=== PATIENT | female | born 1990 | race American Indian/Alaskan Native ===

== ENCOUNTER 2018-08-12 22:39 | Inpatient (IN) | payer MEDICAID ==
[2018-08-12] MEDS ORDERED: LACTATED RINGERS 1,000 ML IV ONE (23:08)
[2018-08-12] MEDS ORDERED: CELESTONE SOLUSPAN IM SCH (23:15)
[2018-08-12] MEDS ORDERED: MAGNESIUM SULFATE 40GM/1000ML 40 GM/1,000 ML BAG IV ONE (23:16)
[2018-08-12] MEDS ORDERED: MAGNESIUM SULFATE 4GM/100ML 4 GM/100 ML BAG IV ONE ×2 (23:17→23:20)
[2018-08-12] MEDS ORDERED: AMPICILLIN/NS 2 GM/100 ML 2 GM/100 ML BAG IV ONE ×2 (23:17→23:20)
[2018-08-12] MEDS ORDERED: CELESTONE SOLUSPAN IM ONE (23:18)
[2018-08-12] MEDS: AMPICILLIN/NS 2 GM/100 ML 2 GM/100 ML BAG IV SCH (23:30)
[2018-08-12] MEDS ORDERED: LACTATED RINGERS 1,000 ML IV SCH (23:45)
[2018-08-12] MEDS ORDERED: MAGNESIUM SULFATE 40GM/1000ML 40 GM/1,000 ML BAG IV SCH ×2 (23:45)
--- NOTE | 2018-08-12 23:57 | History and Physical Report ---
History of Present Illness Date of examination: 08/12/18 Date of admission: 08/12/18 23:01 Chief complaint: leaking " water broke" History of present illness: 28 yo at 29 weeks by US today here for PPROM. She stated that she had care in [place] and moved to [place] without visiting a doctors office since May secondary to insurance. She states that she has been to [place] and [place] in the past. She is here with hx of triplet . Past History Past Medical History: no pertinent history Past Surgical History: no surgical history Family/Genetic History: none Social history: single. denies: smoking, alcohol abuse, prescription drug abuse - Obstetrical History Expected Date of Delivery: 10/22/18 Actual Gestation: 29 Week(s) 6 Day(s) : 6 Para: 3 Hx # Term Pregnancies: 3 Number of Pregnancies: 0 Spontaneous Abortions: 3 Induced : 0 Number of Living Children: 3 Medications and Allergies Allergies Allergy/AdvReac Type Severity Reaction Status Date / Time acetaminophen [From Percocet] Allergy Itching Verified 08/12/18 23:08 oxycodone [From Percocet] Allergy Itching Verified 08/12/18 23:08 Home Medications Medication Instructions Recorded Confirmed Last Taken Type Vit,Calc78/Iron/Folic 1 each PO DAILY 08/20/14 08/22/14 08/21/14 History [Prenatabs FA Tablet] Clindamycin [Cleocin] 300 mg PO Q8H #21 cap 08/21/14 08/22/14 08/22/14 Rx Ondansetron [Zofran Odt] 4 mg PO Q6H #20 tab.rapdis 08/21/14 08/22/14 Unknown Rx Active Meds: Active Medications Betamethasone Acet/Betameth SodPhos (Celestone Soluspan) 12 mg IM Q24H NILESH Stop: 08/13/18 23:16 Lactated Ringer's (Lactated Ringers) 1,000 mls @ 999 mls/hr IV BOLUS ONE Stop: 08/13/18 00:08 Ampicillin Sodium (Polycillin/Ns 2 Gm/100 Ml) 2 gm in 100 mls @ 100 mls/hr IV ONCE ONE; Protocol Stop: 08/13/18 00:19 Lactated Ringer's (Lactated Ringers) 1,000 mls @ 125 mls/hr IV DIRECT NILESH Magnesium Sulfate (Magnesium Sulfate 40gm/1000ml) 40 gm in 1,000 mls @ 75 mls/hr IV DIRECT NILESH Azithromycin 500 mg/ Sodium (Chloride) 250 mls @ 250 mls/hr IV Q24HR NILESH Review of Systems All systems: negative Genitourinary: leakage of fluid - Vital Signs Vital signs: Vital Signs Pulse BP Pulse Ox 115 H 100/59 100 08/12/18 23:29 08/12/18 23:29 08/12/18 23:29 Temp Pulse Resp BP Pulse Ox 120 H 105/65 100 08/12/18 23:51 08/12/18 23:49 08/12/18 23:51 - Physical Exam Breasts: Positive: normal Cardiovascular: Regular rate, Normal S1 Lungs: Positive: Clear to auscultation, Normal air movement Abdomen: Positive: normal appearance, soft, normal bowel sounds. Negative: distention, tenderness, guarding Vagina: Positive: normal moisture Uterus: Positive: enlarged Anus/Rectum: Positive: normal perianal skin Extremities: Positive: normal Deep Tendon Reflex Grade: Normal +2 - Obstetrical FHR: auscultation normal Cervical Dilatation: 4 Cervical Effacement Percentage: 80 station: -4 Uterine Contraction Pattern: Irregular Uterine Tone Measurement Phase: Contraction Uterine Contraction Intensity: Mild Results All other labs normal. Ultrasound: report reviewed Assessment and Plan A/P IUP 29 weeks with triplet Poor care US - breech, vertex, transverse admit to labor and delivery stat labs ( labs) IVF Amp 2 g iv q6 and erythromycin ( azithro 500mg substitute) BMZ x1 stat now then in 24hrs UDS US performed Magnesium 6/3 mag levels q4hrs consents signed for csec if active labor consult to [facility] in am
[2018-08-13] MEDS ORDERED: MAGNESIUM SULFATE 4GM/100ML 4 GM/100 ML BAG IV ONE (00:06)
[2018-08-13 00:15] LABS: Basophils # (Auto) 0.1 K/mm3 (0.0-0.1); Eosinophils # (Auto) 0.1 K/mm3 (0.0-0.4); Eosinophils % (Auto) 1.3 % (0.0-4.3); Hematocrit 36.7 % (30.3-42.9); Hemoglobin 12.3 gm/dl (10.1-14.3); Lymphocytes # (Auto) 2.4 K/mm3 (1.2-5.4); Lymphocytes % (Auto) 31.6 % (13.4-35.0); Mean Corpuscular HGB Conc 33 % (30-34); Mean Corpuscular Volume 93 fl (79-97); Monocytes # (Auto) 0.3 K/mm3 (0.0-0.8); Red Blood Count 3.96 M/mm3 (3.65-5.03); Red Cell Distribution Width 14.7 % (13.2-15.2)
[2018-08-13 00:17] LABS: Platelet Count 153 K/mm3 (140-440)
[2018-08-13] MEDS: ZITHROMAX 500 MG in NACL 0.9% 250ML 250 ML IV SCH (00:30)
--- NOTE | 2018-08-13 00:33 | Ultrasound Report ---
PROCEDURE: US OB FOLLOWUP EA ADD GESTAT TECHNIQUE: Routine transabdominal imaging was obtained the pelvis for evaluation of the triplet preg basilio. There are no previous studies available for comparison. HISTORY: leaking fluid COMPARISONS: None FINDINGS: There are triplets. Baby a is in breech position the largest vertical amniotic fluid pocket is 3.3 cm which is within nor mal range. The placenta is anterior position and is grade 3. The heart rate is 136 BPM. A compl ete survey of organs was not obtained. The estimated sonographic gestational age based on crite juanjo is 29 weeks 6 days. The estimated weight is 1352 g. Baby B is in cephalic presentation. The heart rate is 132 BPM. The placenta is anterior in posi tion and is grade 3. A complete survey of organs was not obtained. The estimated gestational ag e is 30 weeks 4 days based on sonographic criteria. The weight is 1576 g. Baby C is in transverse orientation with a head along the maternal right side. The heart rate i s 137 bpm. The placenta is anterior and is grade 3. The estimated weight is 1576 g. The largest vertical pocket of amniotic fluid is 5.8 cm. IMPRESSION: Triplet as described. The vertical pockets of amniotic fluid and appear grossly normal.. This document is electronically signed by Rafi Pal MD., August 13 2018 12:30:36 AM ET
--- NOTE | 2018-08-13 00:42 | Ultrasound Report ---
PROCEDURE: US OB FOLLOW UP TECHNIQUE: Transabdominal imaging was obtained of the pelvis. HISTORY: leaking fluid/ COMPARISONS: None FINDINGS: Baby a is in breech presentation. The heart rate is 136 BPM. The largest vertical amniotic flui d pocket is 3.3 cm which is within normal range. The placenta is anterior and is grade 3. A complete survey of organs was not obtained. The estimated weight is 1352 g. Estimated sonographic gestational age is 29 weeks 6 days. IMPRESSION: Breech presentation. The largest vertical mL fluid pocket is 3.3 cm which is within normal range. Estimated sonographic gestational age is 29 weeks 6 days. Normal heart rate is 136 BPM.. This document is electronically signed by Rafi Pal MD., August 13 2018 12:40:16 AM ET
--- NOTE | 2018-08-13 00:45 | Ultrasound Report ---
PROCEDURE: US OB FOLLOWUP EA ADD GESTAT TECHNIQUE: Transabdominal imaging was obtained of the pelvis. HISTORY: leaking fluid COMPARISONS: None FINDINGS: Baby B is in cephalic presentation. The amniotic fluid volume appears grossly normal. The placenta is posterior in position and is grade 3. The heart is 132 BPM. A complete survey of organs was not obtained. The sonographic gestational age is 29 weeks 6 days. Estimated weight is 1470 g. IMPRESSION: Cephalic presentation with normal heart rate of 132 BPM. Amniotic fluid volume is grossly normal. Estimated sonographic gestational age is 29 weeks 6 days.. This document is electronically signed by Rafi Pal MD., August 13 2018 12:42:40 AM ET
[2018-08-13 01:10] LABS: Bilirubin,Urine NEG (Negative); Blood,Urine NEG (Negative); Color,Urine Yellow (Yellow); Mucus,Urine FEW /HPF; Protein,Urine <15 mg/dL mg/dL (Negative); RBC,Urine < 1.0 /HPF (0.0-6.0); Urobilinogen,Urine < 2.0 mg/dL (<2.0)
[2018-08-13 01:17] LABS: Amphetamine Screen,Urine PRESUMPTIVE NEGATIVE; Benzodiazepines Screen,Urine PRESUMPTIVE NEGATIVE; Cannabinoid Screen,Urine PRESUMPTIVE NEGATIVE; Cocaine Screen,Urine PRESUMPTIVE NEGATIVE; Methadone Screen,Urine PRESUMPTIVE NEGATIVE; Opiate Screen,Urine PRESUMPTIVE NEGATIVE
[2018-08-13] MEDS ORDERED: SUBLIMAZE IV ONE (01:19)
[2018-08-13 02:51] LABS: Hepatitis C Virus Antibody Non-Reactive (NonReactive)
[2018-08-13] MEDS ORDERED: BICITRA PO ONE (03:44)
[2018-08-13] MEDS ORDERED: REGLAN IV ONE (03:44)
[2018-08-13] MEDS ORDERED: PEPCID IV ONE (03:44)
[2018-08-13] MEDS ORDERED: LACTATED RINGERS 1,000 ML IV SCH (04:00)
[2018-08-13] MEDS ORDERED: PITOCin/NS 20 UNIT/1000ML DRIP 20 UNITS/1,000 ML BAG IV SCH ×2 (04:00→09:30)
[2018-08-13] MEDS ORDERED: SUBLIMAZE IV PRN (04:02)
[2018-08-13] MEDS ORDERED: SUBLIMAZE ONE (04:02)
[2018-08-13] MEDS ORDERED: NARCAN 2 MG/2 ML IV PRN (04:35)
--- NOTE | 2018-08-13 04:35 | Anesthesia Consultation ---
Anesthesia Consult and Med Hx Date of service: 08/13/18 - Airway Anesthetic Teeth Evaluation: Good ROM Head & Neck: Adequate Mental/Hyoid Distance: Adequate Mallampati Class: Class II Intubation Access Assessment: Probably Good - Pre-Operative Health Status ASA Pre-Surgery Classification: ASA2 Proposed Anesthetic Plan: Epidural, Spinal - Pulmonary Hx Asthma: No COPD: No Hx Pneumonia: No - Cardiovascular System Hx Hypertension: No - Central Nervous System Hx Seizures: No Hx Psychiatric Problems: No - Endocrine Hx Renal Disease: No Hx End Stage Renal Disease: No Hx Hypothyroidism: No Hx Hyperthyroidism: No - Hematic Hx Anemia: Yes Hx Sickle Cell Disease: No - Other Systems Hx Alcohol Use: No
[2018-08-13] MEDS ORDERED: fentaNYL-BUPIV 2 MCG/ML-0.125% 200 MCG/100 ML BAG EPIDURAL SCH (05:00)
[2018-08-13] MEDS ORDERED: NACL 0.9% IR ONE (05:20)
[2018-08-13] MEDS ORDERED: WATER FOR IRRIG STERILE IR ONE (05:20)
[2018-08-13] MEDS ORDERED: HEMABATE IM ONE (05:29)
[2018-08-13] MEDS ORDERED: METHERGINE IM ONE (05:29)
[2018-08-13] MEDS ORDERED: NEO SYNEPHRINE/NS Syringe(OR USE) IV ONE (05:47)
[2018-08-13] MEDS ORDERED: XYLOCAINE MPF 2% ONE (05:47)
[2018-08-13] MEDS ORDERED: ASTRAMORPH PF 10MG/10ML ONE (05:58)
[2018-08-13] MEDS ORDERED: VERSED ONE (06:20)
[2018-08-13] MEDS ORDERED: NACL 0.9% 1000 ML 1,000 ML ONE (06:22)
--- NOTE | 2018-08-13 06:41 | Anesthesia Day of Surgery ---
Anesthesia Day of Surgery - Day of Surgery Patient Examined: Yes Patient H&P Reviewed: Yes Patient is NPO: Yes
--- NOTE | 2018-08-13 06:51 | Procedure Note ---
OB Delivery Note - Delivery Date of Delivery: 08/13/18 Surgeon: JOE MARQUEZ Estimated blood loss: 1000cc - Section Preop diagnosis: other malpresentation, other (triplet) Postop diagnosis: same section procedure: section Disposition: PACU Complications: none - A at 1 minute: 7 at 5 minutes: 9 Gender: Male (3 pounds 9 oz) B at 1 minute: 5 at 5 minutes: 8 Gender: Female (3 pounds 1 oz) C at 1 minute: 5 at 5 minutes: 9 Gender: Female (3 pounds 7 oz)
--- NOTE | 2018-08-13 06:59 | Operative Report ---
Operative Report Operative Report: DATE OF OPERATION: 08/13/18 PREOPERATIVE DIAGNOSES: 1. Intrauterine gestation at 29 weeks, in active labor, 2. Triplets . 3. Malpresentation 4.PPROM POSTOPERATIVE DIAGNOSES: 1-3 ANDREW OPERATION PERFORMED: Primary low transverse section. SURGEON: Cheyenne Andrade MD ANESTHESIA: Epidural. COMPLICATIONS: None. ESTIMATED BLOOD LOSS: 1000 mL. DRAINS: Vargas catheter to the bladder. SPECIMENS TO PATHOLOGY: Cord blood for routine testing. OPERATIVE FINDINGS: A viable male infant with Apgars of 7 and 9 and birthweight of 3 pounds 9 ounces was delivered from a breech presentation. A viable female with Apgars 5 and 8 weight 3 pounds 1 oz. A viable female infant with Apgars 5 and 9 and birthweight 3 pounds 7 oz. There was normal anterior fundal placenta. The amniotic fluid was clear. The uterus, fallopian tubes and ovaries were normal. DESCRIPTION OF OPERATION: The patient was brought to the operating suite in stable condition with epidural anesthesia on board and an indwelling catheter in place in the bladder. The patient was placed supine on the operating room table and rolled to her left side with a wedge. The abdomen was prepped and draped in standard fashion for section. After testing with forceps to assure an adequate anesthetic level, the surgery was commenced. We had counseled the patient extensively regarding the risks of the surgery including but not limited to stroke, embolus, phlebitis, pain, infection, hemorrhage, as well as injury to the infant and the internal organs such as the bowel, bladder, blood vessels, nerves, kidneys, ureters and pelvic organs. The patient was aware of the postoperative morbidity issues and recovery timeframes. The patient was aware she can form adhesions, which can result in obstruction of loop of bowel or ureter or chronic pain. She was aware that should she have hemorrhage and require blood transfusion, there was a small chance for exposure to hepatitis or HIV disease. With the scalpel, a Pfannenstiel skin incision was made. Dissection was carried down sharply through the subcutaneous tissues and fascia in a transverse plane with the scalpel, electrocautery and curved Hunt scissors. The fascia was sharply freed up superiorly and inferiorly from the underlying rectus muscles, which were bluntly and sharply divided. The peritoneum was entered carefully in a clear space with a curved hemostat. The peritoneal incision was then extended vertically with Metzenbaum scissors. A retractor and bladder blade were placed. A bladder flap was created by incising transversely through the peritoneum and vesicouterine fold and then bluntly dissecting the bladder distally. With the scalpel, a low transverse hysterotomy was commenced. The serosa and myometrium were scored with the scalpel. The uterine cavity was actually entered bluntly with a curved hemostat. The uterine incision was then extended laterally with the stereoplotter operator's fingers. An intrauterine hand was placed and the buttocks in breech presentation was brought up out of the pelvis into the uterine incision. With fundal pressure, he was delivered without difficulty. The nasopharynx and oropharynx were suctioned. The second bag was ruptured using allis and feet grasped gently with delivery of double footling breech. The third membrane ruptured with allis and feet grasped with delivery of viable female . All babies handed to 3 Peds teams awaiting. T The placenta was manually removed. The uterine cavity was then curetted with a dry sponge and freed of the remaining membranes. The edges of the uterine incision were grasped with Eldridge clamps. With the massage and the Pitocin, the uterus began to firm up normally. The uterine incision was then closed in 2 layers of 0 Vicryl sutures. The first suture was placed to the endometrium and myometrium. The second suture was placed through the endopelvic fascia and also reincorporated the bladder flap peritoneum. Peritoneal lavage was then performed. The pelvis and gutters were irrigated and suctioned and cleared of all blood and clots and amniotic fluid. The uterine incision was reinspected to assure hemostasis. The uterus, tubes and ovaries were inspected and were normal. Once we were satisfied with the hemostasis, attention was turned to closure of the abdominal incision. The peritoneum, muscles and fascia were closed in layers using 0-Vicryl sutures. The subcutaneous tissue was closed with 3-0 plain sutures. The skin was closed with a subcuticular suture of 4-0 Vicryl followed by benzoin, Steri-Strips and a Telfa dressing. The patient was moved to the recovery room in stable condition with the Vargas catheter draining clear urine. Instruments, sponge and needle counts were reported as correct. Estimated blood loss was 1000 mL. There were no complications.
[2018-08-13] MEDS ORDERED: DILAUDID IM PRN (07:30)
[2018-08-13] MEDS ORDERED: DILAUDID IV PRN (07:30)
[2018-08-13] MEDS ORDERED: TORADOL IV PRN ×2 (07:30→09:00)
[2018-08-13] MEDS ORDERED: LANSINOH TP PRN (09:00)
[2018-08-13] MEDS ORDERED: MORPHINE IV PRN ×2 (09:00)
[2018-08-13] MEDS ORDERED: TUCKS PAD TP PRN (09:00)
[2018-08-13] MEDS ORDERED: NARCAN 0.4 MG/1 ML IV PRN (09:00)
[2018-08-13] MEDS ORDERED: SODIUM CHLORIDE FLUSH SYRINGE 10 ML IV PRN (09:30)
[2018-08-13] MEDS ORDERED: PHENERGAN PR PRN (09:30)
[2018-08-13] MEDS: D5LR 1,000 ML IV SCH ×2 (09:46→20:04)
[2018-08-13] MEDS ORDERED: TYLENOL PO PRN (10:00)
[2018-08-13] MEDS ORDERED: ANUCORT-HC PR PRN (10:00)
[2018-08-13] MEDS: ZOFRAN IV PRN ×2 (10:30→20:04)
[2018-08-13] MEDS: AMPICILLIN/NS 2 GM/100 ML 2 GM/100 ML BAG IV SCH ×3 (11:36→23:45)
[2018-08-13] MEDS ORDERED: SENOKOT PO PRN (22:00)
[2018-08-14] MEDS: ZITHROMAX 500 MG in NACL 0.9% 250ML 250 ML IV SCH (01:02)
[2018-08-14] MEDS: ZOFRAN IV PRN (03:57)
[2018-08-14] MEDS: AMPICILLIN/NS 2 GM/100 ML 2 GM/100 ML BAG IV SCH ×2 (05:45→19:18)
[2018-08-14] MEDS ORDERED: BOOSTRIX IM ONE (06:00)
[2018-08-14] MEDS: IBUPROFEN PO PRN ×3 (07:47→22:58)
[2018-08-14] MEDS: NORCO 5/325 PO PRN ×3 (07:47→22:58)
[2018-08-14] MEDS ORDERED: M-M-R II VACCINE SUB-Q ONE (11:00)
--- NOTE | 2018-08-14 11:10 | Progress Note ---
Assessment and Plan POD 1 s/p ltcs.Doing well. Patient c/o mild incisional pain and some vomiting on pod 0 but none today. Continue routine care. Plan for discharge on POD3. Subjective - Subjective Date of service: 08/14/18 Patient reports: appetite normal, voiding normally, pain well controlled, ambulating normally : in NICU Objective - Vital Signs Latest vital signs: Vital Signs Temp Pulse Resp BP BP Pulse Ox 08/14/18 07:30 98.0 F 84 18 110/71 100 08/13/18 23:37 97.9 F 80 20 125/79 100 08/13/18 19:37 98.3 F 84 18 104/63 08/13/18 12:25 98.0 F 88 18 121/76 99 Intake and Output 08/13/18 08/14/18 08/14/18 22:59 06:59 14:59 Intake Total 1660 340 600 Output Total 800 900 400 Balance 860 -560 200 Intake: IV 1100 100 D5lr 1,000 ml @ 125 mls/ 1000 hr IV DIRECT NILESH Rx#: [id number] POLYCILLIN/NS 2 GM/100 ML 100 100 2 gm In 100 ml @ 100 mls /hr IV Q6HR NILESH Rx#: [id number] Oral 200 240 Intake, Free Water 360 240 360 Output: Urine 800 900 400 Indwelling Catheter 800 Void 900 400 Other: Total, Intake Amount 200 240 Total, Output Amount 800 800 400 # Voids Indwelling Catheter 2 Void 1 3 - Exam Breasts: Present: deferred Cardiovascular: Present: Regular rate, Normal S1, Normal S2 Lungs: Present: Clear to auscultation, Normal air movement Abdomen: Present: normal appearance, soft Vulva: both: normal Extremities: Present: normal Incision: Present: normal, dry, intact
[2018-08-14] MEDS: FEOSOL PO SCH (12:52)
[2018-08-14] MEDS: PRENATAL VITAMIN PO SCH (12:52)
[2018-08-14 13:52] LABS: Basophils % (Auto) 0.2 % (0.0-1.8); Eosinophils % (Auto) 0.1 % (0.0-4.3); Hematocrit 28.7 % (30.3-42.9); Hemoglobin 9.6 gm/dl (10.1-14.3); Lymphocytes # (Auto) 1.4 K/mm3 (1.2-5.4); Lymphocytes % (Auto) 8.8 % (13.4-35.0); Mean Corpuscular HGB Conc 33 % (30-34); Mean Corpuscular Volume 93 fl (79-97); Monocytes # (Auto) 0.6 K/mm3 (0.0-0.8); Monocytes % (Auto) 3.9 % (0.0-7.3); Platelet Count 148 K/mm3 (140-440); Red Cell Distribution Width 14.7 % (13.2-15.2)
[2018-08-14] MEDS: D5LR 1,000 ML IV SCH (19:18)
[2018-08-14] MEDS: MILK OF MAGNESIA PO PRN (23:05)
[2018-08-15] MEDS: AMPICILLIN/NS 2 GM/100 ML 2 GM/100 ML BAG IV SCH ×2 (01:54→12:17)
[2018-08-15] MEDS: ZITHROMAX 500 MG in NACL 0.9% 250ML 250 ML IV SCH (03:03)
[2018-08-15] MEDS: NORCO 5/325 PO PRN ×3 (05:38→19:29)
[2018-08-15] MEDS: IBUPROFEN PO PRN ×3 (05:39→19:28)
[2018-08-15] MEDS: MYLICON PO PRN ×3 (07:17→19:28)
[2018-08-15] MEDS ORDERED: AMPICILLIN/NS 2 GM/100 ML 2 GM/100 ML BAG IV NR (08:00)
[2018-08-15] MEDS: PRENATAL VITAMIN PO SCH (11:23)
[2018-08-15] MEDS: FEOSOL PO SCH (11:23)
--- NOTE | 2018-08-15 15:39 | Progress Note ---
Assessment and Plan POD 1 s/p ltcs for triplets as walk in patient. Infants in NICU. patient without complaint. Patient is tolerating regular food. Positive flatus Subjective - Subjective Date of service: 08/15/18 Interval history: s/p ltcs for triplets Patient reports: appetite normal, voiding normally, pain well controlled, ambulating normally [place]: in NICU Objective - Vital Signs Latest vital signs: Vital Signs Temp Pulse Resp BP Pulse Ox 08/15/18 07:24 97.6 F 64 18 108/68 100 08/14/18 23:24 98.2 F 80 20 97/62 98 08/14/18 17:02 98.3 F 78 18 111/73 99 Intake and Output 08/15/18 08/15/18 08/15/18 06:59 14:59 22:59 Intake Total 580 120 Balance 580 120 Intake: IV 100 POLYCILLIN/NS 2 GM/100 ML 100 2 gm In 100 ml @ 100 mls /hr IV Q6HR [facility] Rx#: [id number] Oral 120 120 Intake, Free Water 360 Other: Total, Intake Amount 120 120 # Voids Void 1 1 - Exam Breasts: Present: deferred Cardiovascular: Present: Regular rate, Normal S1, Normal S2 Lungs: Present: Clear to auscultation, Normal air movement Abdomen: Present: normal appearance, soft, distention (mild), normal bowel sarah nds Uterus: Present: normal, firm, fundal height below umbilicus Incision: Present: normal, dry, dressed
[2018-08-15] MEDS ORDERED: ZITHROMAX PO SCH (22:00)
[2018-08-15] MEDS: MILK OF MAGNESIA PO PRN (22:19)
[2018-08-16] MEDS: NORCO 5/325 PO PRN ×3 (01:06→18:28)
[2018-08-16] MEDS: IBUPROFEN PO PRN ×3 (01:06→18:29)
--- NOTE | 2018-08-16 09:29 | Progress Note ---
Assessment and Plan A/P POD 3 primary csec for triplets doing well d/c home with f/u in 2 weeks Subjective - Subjective Date of service: 08/16/18 Principal diagnosis: s/p primary csec for triplets Interval history: 28 yo at 29 weeks by US today here for PPROM. She stated that she had care in [place] and moved to [place] without visiting a doctors office since May secondary to insurance. She states that she has been to [place] and [facility] in the past. She is here with hx of triplet . Patient reports: appetite normal, voiding normally, pain well controlled, flatus, ambulating normally : doing well, in NICU Objective - Vital Signs Latest vital signs: Vital Signs Temp Pulse Resp BP Pulse Ox 08/15/18 15:25 98.4 F 75 18 114/78 100 Intake and Output 08/15/18 08/16/18 08/16/18 23:59 07:59 15:59 Intake Total 1080 Balance 1080 Intake: Oral 600 Intake, Free Water 480 Other: Total, Intake Amount 600 # Voids Void 3 - Exam Breasts: Present: normal Cardiovascular: Present: Regular rate, Normal S1 Lungs: Present: Clear to auscultation, Normal air movement Abdomen: Present: normal appearance, soft, normal bowel sounds. Absent: distention, tenderness, guarding Uterus: Present: normal, firm, fundal height below umbilicus. Absent: bogginess, tenderness Extremities: Present: normal Deep Tendon Reflex Grade: Normal +2 Incision: Present: normal, dry, intact
--- NOTE | 2018-08-16 09:31 | Discharge Summary ---
Providers - Providers Date of Admission: 08/12/18 23:01 Date of discharge: 08/16/18 Attending physician: JOE MARQUEZ MD 08/13/18 04:55 Consult to Case Management [CONS] Urgent Services Needed at Discharge: Registration Rep Notified:: correctional casework specialist Was contact made?: No Primary care physician: SEED CLEANER OPERATOR Hospitalization Reason for admission: active labor, rupture of membranes Delivery: Procedure: section, primary low transverse Episiotomy: none Laceration: none Incision: normal, dry, intact complications: none Discharge diagnosis: other [place] baby: twins (TRIPLETS) Hospital course: pATIENT CAME IN pproM AT 29 WEEKS WITH POOR CARE FROM MD. she delivered triplets and did well PP. f/u in 2 weeks Disposition: DC-30 STILL A PATIENT Plan - Discharge Medications Prescriptions: Ferrous Sulfate 325 mg PO BID #60 tablet. Ibuprofen [Motrin] 600 mg PO Q8H PRN #30 tablet PRN Reason: Pain oxyCODONE /ACETAMINOPHEN [Percocet 5/325] 1 tab PO Q6HR PRN #30 tablet PRN Reason: Pain - Provider Discharge Summary Additional instructions: [] Smoking cessation referral if applicable(refer to patient education folder for contact #) [] Refer to [facility] Booklet Call your doctor immediately for: * Fever > 100.5 * Heavy vaginal bleeding ( >1 pad per hour) * Severe persistent headache * Shortness of breath * Reddened, hot, painful area to leg or breast * Drainage or odor from incision. * Keep incision clean and dry at all times and follow doctor's instructions regarding bathing/showering - Follow up plan Follow up: PRIMARY MD BASSEM [Primary Care Provider] - 7 Days
[2018-08-16] MEDS ORDERED: CITRATE OF MAGNESIA PO ONE (14:30)
[2018-08-16] MEDS: FEOSOL PO SCH (18:28)
[2018-08-16] MEDS: PRENATAL VITAMIN PO SCH (18:33)
[2018-08-16 20:18] VITALS: BP 119/78
== END 2018-08-16 21:00 | disposition home or self-care (01) | DRG 765 ==
LOC: TRG 22:39 → LD 23:01 → OB 08-13 08:45
PROVIDERS: ADMIT Obstetrics & Gynecology; ATTEND Obstetrics & Gynecology
PROC: 10D00Z1 Extraction of Products of Conception, Low, Open Approach (ICD-10-PCS; principal; 2018-08-13)
PROC: 3E0234Z Introduction of Serum, Toxoid and Vaccine into Muscle, Percutaneous Approach (ICD-10-PCS; 2018-08-14)
DX: O42.913 Preterm premature rupture of membranes, unspecified as to length of time between rupture and onset of labor, third trimester (principal); O30.103 Triplet pregnancy, unspecified number of placenta and unspecified number of amniotic sacs, third trimester; O32.8XX1 Maternal care for other malpresentation of fetus, fetus 1; O32.8XX2 Maternal care for other malpresentation of fetus, fetus 2; Z3A.29 29 weeks gestation of pregnancy; Z37.51 Triplets, all liveborn; Z23 Encounter for immunization
CPT/HCPCS: 36415; 76816; 80307; 81001; 82962; 85025; 85660; 86592; 86706; 86762; 86803; 86850; 86900; 86901; 87806; 88307; G0378; C9250; J0290; J0456; J0702; J1170; J1885; J2210; J2250; J2270; J2274; J2370; J2405; J2590; J2765; J3010; J3475; J7030; J7050; J7120; J7121

== ENCOUNTER 2018-11-06 13:31 | Emergency (ER) | payer MEDICAID ==
[2018-11-06 13:37] VITALS: BP 128/71
[2018-11-06 13:51] LABS: Basophils % (Auto) 0.5 % (0.0-1.8); Eosinophils # (Auto) 0.1 K/mm3 (0.0-0.4); Hemoglobin 13.3 gm/dl (10.1-14.3); Lymphocytes # (Auto) 1.9 K/mm3 (1.2-5.4); Lymphocytes % (Auto) 38.5 % (13.4-35.0); Mean Corpuscular HGB Conc 34 % (30-34); Mean Corpuscular Volume 93 fl (79-97); Monocytes # (Auto) 0.2 K/mm3 (0.0-0.8); Monocytes % (Auto) 4.7 % (0.0-7.3); Platelet Count 200 K/mm3 (140-440); Red Blood Count 4.21 M/mm3 (3.65-5.03)
--- NOTE | 2018-11-06 15:14 | Emergency Department Report ---
ED Female HPI - General Chief complaint: Vaginal Bleeding Stated complaint: VAGINAL BLEEDING Time Seen by Provider: 11/06/18 14:49 Source: patient Mode of arrival: Ambulatory Limitations: No Limitations - History of Present Illness Initial comments: Mrs. Malhotra is a healthy 28 yo female who presents with heavy vaginal bleeding for the past day. She is changing a pad every hour. She delivered triplets via August 13. She had a normal lie. In September. Then 2 weeks ago she began having vaginal bleeding light. Bleeding became heavy today. MD Complaint: vaginal bleeding -: Gradual, days(s) (1), week(s) (2) Severity: moderate Quality: cramping Consistency: constant Improves with: none Worsens with: none Are you Now?: No Associated Symptoms: vaginal bleeding - Related Data Home Medications Medication Instructions Recorded Confirmed Last Taken Vit,Calc78/Iron/Folic 1 each PO DAILY 08/20/14 08/15/18 08/15/18 09:00 [Prenatabs FA Tablet] Previous Rx's Medication Instructions Recorded Last Taken Type Clindamycin [Cleocin] 300 mg PO Q8H #21 cap 08/21/14 08/22/14 Rx Ondansetron [Zofran Odt] 4 mg PO Q6H #20 tab.rapdis 08/21/14 Unknown Rx Ferrous Sulfate 325 mg PO BID #60 tablet. 08/13/18 Unknown Rx Ibuprofen [Motrin] 600 mg PO Q8H PRN #30 tablet 08/13/18 Unknown Rx oxyCODONE /ACETAMINOPHEN [Percocet 1 tab PO Q6HR PRN #30 tablet 08/13/18 Unknown Rx 5/325] medroxyPROGESTERone ACETATE 10 mg PO DAILY 10 Days #10 tablet 11/06/18 Unknown Rx [Provera] Allergies Allergy/AdvReac Type Severity Reaction Status Date / Time acetaminophen [From Percocet] Allergy Itching Verified 08/12/18 23:08 oxycodone [From Percocet] Allergy Itching Verified 08/12/18 23:08 ED Review of Systems ROS: Stated complaint: VAGINAL BLEEDING Other details as noted in HPI Comment: All other systems reviewed and negative Constitutional: denies: fever, malaise Respiratory: denies: cough, orthopnea Cardiovascular: denies: chest pain ED Past Medical Hx - Past Medical History Previous Medical History?: No Hx Hypertension: No Hx Congestive Heart Failure: No Hx Diabetes: No Hx Deep Vein Thrombosis: No Hx Renal Disease: No Hx Sickle Cell Disease: No Hx Seizures: No Hx Asthma: No Hx COPD: No Hx HIV: No Additional medical history: Vaginal delivery x 2 - Surgical History Past Surgical History?: Yes Additional Surgical History: x 1 on August 13, 2018 - Social History Smoking Status: Never Smoker Substance Use Type: None - Medications Home Medications: Home Medications Medication Instructions Recorded Confirmed Last Taken Type Vit,Calc78/Iron/Folic 1 each PO DAILY 08/20/14 08/15/18 08/15/18 09:00 History [Prenatabs FA Tablet] Clindamycin [Cleocin] 300 mg PO Q8H #21 cap 08/21/14 08/15/18 08/22/14 Rx Ondansetron [Zofran Odt] 4 mg PO Q6H #20 tab.rapdis 08/21/14 08/15/18 Unknown Rx Ferrous Sulfate 325 mg PO BID #60 tablet.dr 08/13/18 Unknown Rx Ibuprofen [Motrin] 600 mg PO Q8H PRN #30 tablet 08/13/18 Unknown Rx oxyCODONE /ACETAMINOPHEN [Percocet 1 tab PO Q6HR PRN #30 tablet 08/13/18 Unknown Rx 5/325] medroxyPROGESTERone ACETATE 10 mg PO DAILY 10 Days #10 tablet 11/06/18 Unknown Rx [Provera] ED Physical Exam - General Limitations: No Limitations General appearance: alert, in no apparent distress - Head Head exam: Present: atraumatic, normocephalic - Eye Eye exam: Present: normal appearance - ENT ENT exam: Present: mucous membranes moist - Neck Neck exam: Present: normal inspection, full ROM. Absent: tenderness, meningismus - Respiratory Respiratory exam: Present: normal lung sounds bilaterally. Absent: respiratory distress, wheezes, rales, rhonchi - Cardiovascular Cardiovascular Exam: Present: regular rate, normal rhythm, normal heart sounds. Absent: systolic murmur, diastolic murmur, rubs, gallop - GI/Abdominal GI/Abdominal exam: Present: soft, normal bowel sounds. Absent: distended, tenderness, guarding, rebound - Extremities Exam Extremities exam: Present: normal inspection - Back Exam Back exam: Present: normal inspection - Neurological Exam Neurological exam: Present: alert, oriented X3, normal gait - Psychiatric Psychiatric exam: Present: normal affect, normal mood - Skin Skin exam: Present: warm, dry, intact, normal color. Absent: rash ED Course Vital Signs 11/06/18 13:35 Temperature 98.1 F Pulse Rate 80 Respiratory 16 Rate Blood Pressure 128/71 O2 Sat by Pulse 98 Oximetry ED Medical Decision Making - Lab Data Result diagrams: 11/06/18 13:38 Laboratory Results - last 24 hr 11/06/18 11/06/18 11/06/18 13:38 13:38 13:38 WBC 5.0 RBC 4.21 Hgb 13.3 Hct 39.0 MCV 93 MCH 32 MCHC 34 RDW 15.0 Plt Count 200 Lymph % (Auto) 38.5 H [place] % (Auto) 4.7 Eos % (Auto) 3.0 Baso % (Auto) 0.5 Lymph # 1.9 [place] # 0.2 Eos # 0.1 Baso # 0.0 Seg Neutrophils % 53.3 Seg Neutrophils # 2.7 HCG, Quant < 2 Blood Type O POSITIVE - Medical Decision Making Mrs. Arias presents with dysfunctional uterine bleeding which is common after recent . I provided prescription for provera. She understands the risk, alternatives and benefits of this medication. Normal hemoglobin and hematocrit discharged home in stable condition with reassurance. Critical care attestation.: If time is entered above; I have spent that time in minutes in the direct care of this critically ill patient, excluding procedure time. ED Disposition Clinical Impression: Dysfunctional uterine bleeding Disposition: -01 TO HOME OR SELFCARE Is pt being admited?: No Does the pt Need Aspirin: No Condition: Stable Instructions: Dysfunctional Uterine Bleeding (ED) Prescriptions: medroxyPROGESTERone ACETATE [Provera] 10 mg PO DAILY 10 Days #10 tablet Referrals: [facility] [Other] - 3-5 Days
== END 2018-11-06 15:32 | disposition home or self-care (01) ==
LOC: ED 13:31
DX: N93.8 Other specified abnormal uterine and vaginal bleeding (principal); Z88.6 Allergy status to analgesic agent; Z88.5 Allergy status to narcotic agent
CPT/HCPCS: 36415; 84702; 85025; 86900; 86901